=== PATIENT | male | born 1980 | race Caucasian/White ===

== ENCOUNTER → 2017-09-08 | Outpatient (CLI) | payer MEDICAID | LOC: FIMAGING 15:12 | PROVIDERS: ATTEND Family Medicine | DX: M23.352 Other meniscus derangements, posterior horn of lateral meniscus, left knee (principal); M22.42 Chondromalacia patellae, left knee; M25.462 Effusion, left knee ==

== ENCOUNTER → 2018-04-17 | Outpatient (CLI) | payer MEDICAID | LOC: FIMAGING 12:26 | PROVIDERS: ATTEND Family Medicine | DX: M23.92 Unspecified internal derangement of left knee (principal); M23.301 Other meniscus derangements, unspecified lateral meniscus, left knee ==